=== PATIENT | male | born 1955 | race Caucasian/White ===

== ENCOUNTER 2020-12-13 21:25 | Emergency (ER) | payer MEDICARE, OTHER ==
[~2020-12-13] VITALS: Ht 167.6 cm; Wt 103.9 kg
[~2020-12-13 21:25] MED LIST: ASPIR 8181 MG PO; DILTIAZEM ER90 MG PO; METOPROLOL SUCC25 MG PO; ONDANSETRON ODT8 MG PO; POTASSIUM CHLO20 ME1 PO; VENLAFAXINE HCL75 MG PO; VENTOLIN HFA18 GM INH
[2020-12-13] MEDS ORDERED: LOSARTAN POTASS50 MG PO (21:42)
[2020-12-13] MEDS ORDERED: OXYCODON-ACETA1 EAC2 PO (21:42)
[2020-12-13] MEDS ORDERED: HYDROCHLOROTH12.5 M1 PO (21:42)
[2020-12-13] MEDS ORDERED: OXYBUTYNIN CHLOR5 M1 PO (21:42)
[2020-12-13] MEDS ORDERED: METFORMIN HCL500 MG PO (21:42)
== END 2020-12-13 22:21 | disposition home or self-care (01) ==
LOC: ED 21:25
DX: S46.811A Strain of other muscles, fascia and tendons at shoulder and upper arm level, right arm, initial encounter (principal); X50.9XXA Other and unspecified overexertion or strenuous movements or postures, initial encounter; Z85.46 Personal history of malignant neoplasm of prostate; Z88.5 Allergy status to narcotic agent; Z88.8 Allergy status to other drugs, medicaments and biological substances; Z79.899 Other long term (current) drug therapy; Z79.84 Long term (current) use of oral hypoglycemic drugs; Z79.82 Long term (current) use of aspirin
CPT/HCPCS: 73080; 99283-25

== ENCOUNTER 2021-09-22 11:46 | Emergency (ER) | payer MEDICARE, OTHER ==
[~2021-09-22] VITALS: Ht 167.6 cm; Wt 106.9 kg
[~2021-09-22 11:46] MED LIST changes: +HYDROCHLOROTH12.5 M1 PO; +LOSARTAN POTASS50 MG PO; +METFORMIN HCL500 MG PO; +OXYBUTYNIN CHLOR5 M1 PO; +OXYCODON-ACETA1 EAC2 PO
--- OUTSIDE RECORDS SUMMARY | 2021-09-22 11:48 | XMS ---
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 Axel has no Care Guidelines for this patient. Samara VISIT COUNT (12 MO.) 2 [facility] TOTAL 2 NOTE: Visits indicate total known visits. ED/C VISIT TRACKING (12 MO.) 09/22/2021 11:46 [facility] [place] TYPE: Emergency COMPLAINT: - R LEG INJURY 12/13/2020 21:[address] [facility] [place] TYPE: Emergency COMPLAINT: - RT ARM INJURY DIAGNOSES: - Other long term acute care registered nurse (current) drug therapy - Personal history of malignant neoplasm of prostate - custodial (current) use of oral hypoglycemic drugs - Allergy status to narcotic agent - custodial (current) use of aspirin - Other and unspecified overexertion or strenuous movements or postures, initial encounter - Allergy status to other drugs, medicaments and biological substances - Strain of other muscles, fascia and tendons at shoulder and upper arm level, right arm, initial encounter INPATIENT VISIT TRACKING (12 MO.) No inpatient visits to display in this time frame [id number]
== END 2021-09-22 13:53 | disposition home or self-care (01) ==
LOC: ED 11:46
DX: M76.61 Achilles tendinitis, right leg (principal); Z85.46 Personal history of malignant neoplasm of prostate; Z88.5 Allergy status to narcotic agent; Z88.8 Allergy status to other drugs, medicaments and biological substances; Z79.899 Other long term (current) drug therapy; Z79.84 Long term (current) use of oral hypoglycemic drugs; Z79.82 Long term (current) use of aspirin; Z79.891 Long term (current) use of opiate analgesic
CPT/HCPCS: 99283

== ENCOUNTER 2024-04-03 11:17 | Emergency (ER) | payer MEDICARE, OTHER ==
[~2024-04-03] VITALS: Ht 167.6 cm; Wt 92.4 kg
[2024-04-03] MEDS ORDERED: ondansetron HCL 4 MG/2 ML VIAL IV ONE (11:45)
[2024-04-03] MEDS ORDERED: SODIUM CHLORIDE 0.9% 1,000 ML IV ONE (11:45)
[2024-04-03] MEDS ORDERED: KETOROLAC TROMETHAMINE 30 MG/ML VIAL IV ONE (11:45)
[2024-04-03 11:47] LABS: BILIRUBIN, URINE NEGATIVE (negative); BLOOD/HGB, URINE NEGATIVE (Negative); KETONE, URINE NEGATIVE (Negative); LEUK ESTERASE, URINE NEGATIVE (negative); NITRITE, URINE NEGATIVE (negative)
[2024-04-03 12:02] LABS: BASOPHILS 1.1 % (0-2); EOSINOPHILS 3.1 % (0-6); HEMATOCRIT 46.3 % (35.0-50.0); HEMOGLOBIN 15.9 g/dL (12.0-18.0); LYMPHOCYTES 23.8 % (24-44); MCH 31.8 (27-36); MCHC 34.4 g/dl (30-36); MCV 92.6 fl (81-99); MONOCYTES 5.2 % (0-12); NEUTROPHILS 66.8 % (39-80); PLATELET COUNT 160 K/uL (140-440); RDW 14.4 (10.5-15.0)
[2024-04-03 12:21] LABS: ALBUMIN 3.4 g/dL (3.4-5.0); ALBUMIN/GLOBULIN RATIO 0.97 (1.1-2.4); ANION GAP 11.6 (7-21); BILIRUBIN, TOTAL 0.7 ng/dL (0.2-1.0); BUN/CREATININE RATIO 17.24 (6.0-28.6); CALCIUM 8.8 mg/dL (8.5-10.1); CREATININE, SERUM 0.87 mg/dL (0.70-1.30); POTASSIUM 3.6 mmol/L (3.5-5.1); PROTEIN, TOTAL 6.9 g/dL (6.4-8.2)
[2024-04-03] MEDS ORDERED: LIDODERM1 EACH TOP (13:57)
[2024-04-03 14:11] VITALS: BP 166/82
--- NOTE | 2024-04-03 21:11 | EKG ---
[facility] [address] [place] [address] Signed Marked sinus bradycardia Left axis deviation Abnormal ECG When compared with ECG of 09-MAY-2016 18:04, Vent. rate has decreased BY 29 BPM Confirmed by Marco Gonzalez MD ([id number]) on 04/03/2024 9:10:49 PM Electronically Signed By: MARCO GONZALEZ MD 04/03/242109 PATIENT NAME: ILA CHAPARRO Electrocardiogram DATE OF : 55 PHYSICIAN: MARCO GONZALEZ MD REPORT #: [id number] REPORT IS CONFIDENTIAL AND NOT TO BE RELEASED WITHOUT AUTHORIZATION
== END 2024-04-03 14:10 | disposition home or self-care (01) ==
LOC: ED 11:17
PROVIDERS: Emergency Medicine
DX: R10.11 Right upper quadrant pain (principal); Z88.5 Allergy status to narcotic agent; Z88.8 Allergy status to other drugs, medicaments and biological substances; Z79.82 Long term (current) use of aspirin; Z79.84 Long term (current) use of oral hypoglycemic drugs; Z79.899 Other long term (current) drug therapy
CPT/HCPCS: 36415; 71260; 74176; 80053; 81003; 83690; 84484; 85025; 93005; 93010; 99284-25; J1885; J2405; J7030; Q9967